=== PATIENT | female | born 1980 | race Caucasian/White ===

== ENCOUNTER 2017-05-03 21:55 | Emergency (ER) | payer SELFPAY ==
[~2017-05-03] VITALS: Ht 162.6 cm; Wt 65.0 kg
[~2017-05-03 21:55] MED LIST: DOXY100T PO; TRAM50 PO; Z.0.NO CURRENT MEDS
[2017-05-03 22:24] VITALS: BP 107/65; PULSE 69; RESP 16; TEMP 98.5; O2SAT 98
== END 2017-05-03 23:58 | disposition left against medical advice (07) ==
LOC: NED 21:55
DX: S51.812A Laceration without foreign body of left forearm, initial encounter (principal); W22.8XXA Striking against or struck by other objects, initial encounter; Z53.21 Procedure and treatment not carried out due to patient leaving prior to being seen by health care provider
CPT/HCPCS: 99281